=== PATIENT | female | born 1980 | race Hispanic/Latino ===

== ENCOUNTER → 2024-03-22 10:06 | Outpatient (REF) | payer OTHER, SELFPAY | LOC: RAD 10:06 | PROVIDERS: ATTENDING PHYSICIAN Physician Assistant Medical | DX: R07.9 Chest pain, unspecified (principal) | CPT/HCPCS: 71046 ==

== ENCOUNTER → 2024-03-29 10:49 | Outpatient (REF) | payer OTHER, SELFPAY ==
[2024-03-29 11:26] LABS: % Eosinophils 1.1 % (0-6); % Immature Granulocytes 0.2 % (0-0.5); % Lymphocytes 24.4 % (20.5-51.1); % Monocytes 7.2 % (1.7-9.3); % Neutrophils 66.1 % (42.2-75.2); Absolute Basophils 0.1 10^3/uL (0-0.2); Absolute Eosinophils 0.1 10^3/uL (0-0.7); Absolute Lymphocytes 1.5 10^3/uL (1.2-3.4); Absolute Monocytes 0.4 10^3/uL (0.1-0.6); Absolute Neutrophils 4.1 10^3/uL (1.4-6.5); Hematocrit 40.8 % (37.0-47.0); Hemoglobin 13.3 g/dL (12.0-16.0); Mean Corp Hgb Conc. 32.6 g/dL (33.0-37.0); Mean Corpuscular Hgb 28.4 pg (27.0-31.0); Mean Platelet Volume 8.3 fL (7.4-10.4); Nucleated Red Blood Cells % 0 %; Platelet Count 410 10^3/uL (130-400); Red Blood Cell Count 4.69 10^6/uL (4.20-5.40); Red Cell Dist. Width 12.6 % (11.5-14.5); White Blood Cell Count 6.1 10^3/uL (4.8-10.8)
[2024-03-29 12:50] LABS: ALT (SGPT) 18 U/L (0-35); AST (SGOT) 18 U/L (14-36); Albumin 4.4 g/dl (3.5-5.0); Alkaline Phosphatase 47 U/L (38-126); Blood Urea Nitrogen 11 mg/dl (7-17); Calcium 9.8 mg/dl (8.4-10.2); Carbon Dioxide 28 mmol/L (22-30); Chloride 99 mmol/L (98-107); Glucose 102 mg/dl (70-99); Potassium 4.6 mmol/L (3.5-5.1); Sodium 138 mmol/L (135-145); Total Bilirubin 0.7 mg/dl (0.2-1.3); Total Protein 7.1 g/dl (6.3-8.2); eGFR > 60.00
[2024-03-29 12:52] LABS: C-Reactive Protein < 5.00 mg/L (0.0-10.00)
[2024-03-29 13:09] LABS: Vitamin D, 25-OH*** 64.1 ng/mL (30-80)
[2024-03-29 13:54] LABS: Urine Albumin Negative (Neg - Trace); Urine Bilirubin Negative (Negative); Urine Character Clear (Clear); Urine Color Yellow; Urine Glucose Negative (Negative); Urine Ketone Negative (Negative); Urine Leukocyte Negative (Negative); Urine Nitrite Negative (Negative); Urine Occult Blood Negative (Negative); Urine Specific Gravity 1.005 (<1.030); Urine Urobilinogen Negative (Neg - 1+); Urine pH 6.5 (5.0-9.0)
[2024-03-29 14:16] LABS: Urine Bacteria Few (Negative); Urine Red Blood Cell 0-2 /HPF (0-2); Urine Squamous Cell >30 /LPF (Few)
[2024-03-29 14:40] LABS: Protein/creatinine Ratio 0.9; Urine Protein 11 mg/dl
[2024-03-30 23:07] LABS: Complement C3 99 mg/dl (88-165); IgG 1184 mg/dl (700-1600); IgM 89 mg/dl (40-230)
[2024-03-30 23:32] LABS: ANA, IgG Reflex to HEp-2 Detected (None Detected)
[2024-03-31 12:01] LABS: ANA, HEp-2, IgG Detected (<1:80)
[2024-03-31 12:47] LABS: Jo-1 Antibodies 1 AU/mL (0-40); SSA 52 (Ro)(ENA) Ab, IgG 1 AU/mL (0-40); SSA 60 (Ro)(ENA) Ab, IgG 0 AU/mL (0-40); SSB (La)(ENA) Ab, IgG 1 AU/mL (0-40); Scleroderma Antibody (Scl-70) 1 AU/mL (0-40)
[2024-03-31 13:53] LABS: Smith/RNP (ENA), IgG 5 Units (0-19)
[2024-03-31 15:46] LABS: Lyme Antibody Screen, EIA Negative (Negative)
[2024-04-01 06:39] LABS: ANA Pattern Homogeneous
== END ==
LOC: REG 10:49
PROVIDERS: ATTENDING PHYSICIAN Internal Medicine Rheumatology; FAMILY PHYSICIAN Physician Assistant Medical
DX: A69.20 Lyme disease, unspecified (principal); E55.9 Vitamin D deficiency, unspecified; I73.00 Raynaud's syndrome without gangrene; R76.8 Other specified abnormal immunological findings in serum; Z79.899 Other long term (current) drug therapy
CPT/HCPCS: 36415; 80053; 81003; 81015; 82306; 82570; 82784; 84156; 85025; 86038; 86039; 86140; 86160; 86235; 86618

== ENCOUNTER 2025-03-02 06:17 | Day surgery (SDC) | payer OTHER, SELFPAY | END 2025-03-02 11:37 | disposition home or self-care (01) | LOC: GI 06:17 | PROVIDERS: ATTENDING PHYSICIAN Internal Medicine | DX: Z12.11 Encounter for screening for malignant neoplasm of colon (principal); D12.5 Benign neoplasm of sigmoid colon; K62.1 Rectal polyp; Z86.0100 Personal history of colon polyps, unspecified | CPT/HCPCS: 45385; 45380; 88305 ==

== ENCOUNTER 2025-04-05 04:06 | Emergency (ER) | payer OTHER, SELFPAY ==
[2025-04-05 04:09] VITALS: BP 131/97
[2025-04-05 04:34] LABS: Hematocrit 41.8 % (37.0-47.0); Hemoglobin 13.4 g/dL (12.0-16.0); Mean Corp Hgb Conc. 32.1 g/dL (33.0-37.0); Mean Corpuscular Volume 86.0 fL (81.0-99.0); Nucleated Red Blood Cells % 0 %; Platelet Count 361 10^3/uL (130-400); Red Cell Dist. Width 12.6 % (11.5-14.5)
[2025-04-05 04:49] LABS: ALT (SGPT) 17 U/L (0-35); AST (SGOT) 18 U/L (14-36); Albumin 4.6 g/dl (3.5-5.0); Alkaline Phosphatase 45 U/L (38-126); Blood Urea Nitrogen 13 mg/dl (7-17); Calcium 9.5 mg/dl (8.4-10.2); Carbon Dioxide 28 mmol/L (22-30); Chloride 102 mmol/L (98-107); Glucose 108 mg/dl (70-99); Potassium 4.1 mmol/L (3.5-5.1); Sodium 138 mmol/L (135-145); Total Protein 7.4 g/dl (6.3-8.2); eGFR > 60.00
[2025-04-05 05:00] VITALS: BP 139/85
[2025-04-05] MEDS: NSS 1000 IV (05:01)
--- NOTE | 2025-04-05 05:08 | ED.GENMED ---
History of Present Illness
<Quiana Doran MD, Resident - Last Filed: 04/05/25 06:13>
General
Chief Complaint: Abdominal Symptoms
Source: patient
Exam Limitations: none
Time Seen by Provider: 04/05/25 04:44
History of Present Illness
History of Present Illness:
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
Presented with nausea and diarrhea for the last 7 hours
Last night, around 7 PM she went out for dinner with her friend. She had some questions let and did not feel anything odd about it.
She came home and then around 10 PM she started to feel nauseous, had crampy abdominal pain and had a soft stool, that helped with the pain, later she developed diarrhea and had 3 episodes. Last episode was around 4 AM, it was blackish in color and
had an odd smell to it.
In between the bowel movements, she only had this few sips of water. She developed dizziness, and started to feel her heart racing and then she came to the ER.
Denies any fever, chills, vomiting, blood in stools, mucus in stools, and does not know if her friend had any symptoms.
Past History
<Quiana Doran MD, Resident - Last Filed: 04/05/25 06:13>
Past History
ED Past Medical History: None
ED Past Surgical History: Bowel resection (childhood - torsion)
Social History
Tobacco: Non-smoker
Alcohol: None
Review of Systems
<Quiana Doran MD, Resident - Last Filed: 04/05/25 06:13>
Review of Systems
Allergies reviewed?: Yes
EENT: Reports no symptoms
Respiratory: Reports no symptoms
Cardiac: Reports palpitations
ABD/GI: Reports abdominal pain, nausea and diarrhea
: Reports no symptoms
Musculoskeletal: Reports no symptoms
Skin: Reports no symptoms
Neurological: Reports no symptoms
Endocrine: Reports no symptoms
Hematologic/Lymphatic: Reports no symptoms
Psychiatric: Reports no symptoms
Phy Exam
<Quiana Doran MD, Resident - Last Filed: 04/05/25 06:13>
General Physical Exam
General Presentation: well appearing and no apparent distress
General Skin: warm and dry
General Habitus: normal
General Mental: alert
General Hydration: appears well hydrated
Cardiovascular Exam
Cardiovascular Exam: regular rate/rhythm, no murmur and tachycardia
Pulmonary Exam
Pulmonary Exam: lungs clear, no respiratory distress, no rales, no crackles and no rhonchi
Gastrointestinal Exam
Gastrointestinal Exam: soft and tender (epigastric region)
Neurological Exam
Neurological Exam: alert and oriented x3
Musculoskeletal Exam
Musculoskeletal Exam: full ROM
Skin Exam
Skin Exam: normal color, warm/dry and no rash
Psychiatric Exam
Psychiatric Exam: normal mood/affect
Course
<Quiana Doran MD, Resident - Last Filed: 04/05/25 06:13>
Orders/Labs/Results
Orders:
Orders
04/05/25 04:15
EKG [Electrocardiogram (*1)] Urgent
Reason for Study: Abdominal Pain
EKG- Treatment ONCE
04/05/25 04:16
Complete Blood Count/With Diff Urgent
Comprehensive Metabolic Panel Urgent
Lipase Urgent
Comment: ADDED
04/05/25 04:47
0.9% Sodium Chloride 1000 ml [Nss] 1,000 ml IV BOLUS
04/05/25 05:21
Diphenoxylate / Atropine [Lomotil] 1 tablet PO NOW STA
Ondansetron Injectable [Zofran] 4 mg IV NOW STA
04/05/25 05:43
Add On- LAB Urgent
Tests Added?: lipase
Abnormal Lab Results
04/05/25
04:16
MCHC 32.1 L g/dL
(33.0-37.0)
Glucose 108 H mg/dl
(70-99)
04/05/25 04:16
04/05/25 04:16
Vital Signs
Initial and Last Documented VS:
Initial Vital Signs
Temp Pulse Resp BP Pulse Ox
98.4 F 116 18 131/97 99
04/05/25 04:09 04/05/25 04:09 04/05/25 04:09 04/05/25 04:09 04/05/25 04:09
Last Documented Vital Signs
Temp Pulse Resp BP Pulse Ox
98.4 F 97 17 113/69 99
04/05/25 04:09 04/05/25 06:30 04/05/25 06:30 04/05/25 06:00 04/05/25 05:13
<Miya Morgan, DO - Last Filed: 04/05/25 06:59>
Orders/Labs/Results
Orders:
Orders
04/05/25 04:15
EKG [Electrocardiogram (*1)] Urgent
Reason for Study: Abdominal Pain
EKG- Treatment ONCE
04/05/25 04:16
Complete Blood Count/With Diff Urgent
Comprehensive Metabolic Panel Urgent
Lipase Urgent
Comment: ADDED
04/05/25 04:47
0.9% Sodium Chloride 1000 ml [Nss] 1,000 ml IV BOLUS
04/05/25 05:21
Diphenoxylate / Atropine [Lomotil] 1 tablet PO NOW STA
Ondansetron Injectable [Zofran] 4 mg IV NOW STA
04/05/25 05:43
Add On- LAB Urgent
Tests Added?: lipase
Abnormal Lab Results
04/05/25
04:16
MCHC 32.1 L g/dL
(33.0-37.0)
Glucose 108 H mg/dl
(70-99)
04/05/25 04:16
04/05/25 04:16
Vital Signs
Initial and Last Documented VS:
Initial Vital Signs
Temp Pulse Resp BP Pulse Ox
98.4 F 116 18 131/97 99
04/05/25 04:09 04/05/25 04:09 04/05/25 04:09 04/05/25 04:09 04/05/25 04:09
Last Documented Vital Signs
Temp Pulse Resp BP Pulse Ox
98.4 F 97 17 113/69 99
04/05/25 04:09 04/05/25 06:30 04/05/25 06:30 04/05/25 06:00 04/05/25 05:13
<Quiana Doran MD, Resident - Last Filed: 04/05/25 06:13>
MDM/Problems Addressed
Differential Diagnosis Includes:
Viral gastroenteritis
MDM/Problems Addressed:
Patient presented with nausea and 4 episodes of diarrhea 3 hours after he dining out with her friend. She does not know about symptoms of her friend. She is having loose stools, feels very weak, lightheaded and feels her heart racing.
Blood work done CBC and CMP looks good
Rehydrate the patient with 1 L of normal saline and observe for any further diarrheal episodes.
Her heart rate is improving and she is feeling better.
Advised to use Pedialyte and bland diet for the next few days.
<Quiana Doran MD, Resident - Last Filed: 04/05/25 06:13>
*Pulse Oximetry
SaO2: 99
Oxygen Mode of Delivery: Room air
Patient hypoxic: no
*Critical Care Note
Total Time (30-74mins, 75-104mins- exclusive of procedures): Not Applicable
ED Attending Note
<Quiana Doran MD, Resident - Last Filed: 04/05/25 06:13>
-
Portions of this chart may have been created with voice recognition software.� Occasional wrong word or��sound alike� substitutions may have occurred due to the inherent limitations of voice recognition software.
<Miya Morgan DO - Last Filed: 04/05/25 06:59>
ED Attending Note
Patient seen and examined by attending physician: Yes
I performed a history and physical exam of patient and discussed management with resident, I reviewed resident's note and agree with documented findings and plan of care.: Yes
ED Attending Note:
44-year-old woman with history of seasonal allergies presents with acute nausea, abdominal pain, diarrhea that began around 10 PM last night. She ate fish while she was at a restaurant with friends last night.
She has passed 4 loose stools, the last was quite watery and black. She has been nauseated but has not vomited. She complains of crampy epigastric abdominal discomfort. She has not had a fever nor chills but with onset of diarrhea developed
palpitations feeling that her heart was beating rapidly.
She arrived via EMS. Prehospital EKG shows sinus tachycardia at 130. Blood pressure 130-140 systolic prehospital.
She denies recent antibiotic use nor recent travel.
No known close contacts with similar symptoms.
She denies risk of . Last menstrual period 1 week ago, normal and on time.
Her only daily medication is Yajaira daily.
44-year-old woman appears her stated age, bright and alert, pleasant, appears in no acute distress. Afebrile.
HEENT: Oral mucosa is moist.
Heart is regular rhythm, mildly tachycardic at 108. No murmur no rub.
Lungs are clear to auscultation. No respiratory distress.
Abdomen is soft, nondistended, minimal tenderness epigastric region with deep palpation only. No rebound or guarding. Normoactive bowel sounds.
Skin is warm and dry, normal color. Good turgor.
Concern for acute gastroenteritis either viral versus foodborne. Small bowel obstruction, cholecystitis, pancreatitis are also considerations.
Overall well in appearance.
Mild sinus tachycardia but otherwise hemodynamically stable.
Labs thus far are all unremarkable. Normal CBC. Unremarkable chemistries. Due to upper abdominal discomfort we will add lipase.
IV fluids infusing. Will give a dose of Zofran for nausea and a dose of Lomotil for diarrhea. Thus far has had no diarrhea since arrival to the ED.
06:50
Patient feeling improved after IV fluids.
Monitor shows normal sinus rhythm in the 90s. She remains afebrile. Normotensive.
Abdominal pain has resolved.
Lipase is normal.
Tolerating oral fluids.
Will discharge to home with prescription for Zofran for as needed nausea, Lomotil for as needed diarrhea.
Recommend she limit her diet to clear liquids today, slowly advance to soft bland foods as tolerated. Brat diet discussed as well.
Follow-up with PCP as needed.
Return precautions discussed.
Discharge Plan
Departure
Patient Disposition: Home (Routine Discharge)
Date of Disposition: 04/05/25
Time of Disposition: 06:57
Patient with high blood pressure during this ER visit?: No
Condition: Good
Discharge Problem:
Viral gastroenteritis
Instructions: Viral gastroenteritis in adults
Prescriptions:
New
diphenoxylate-atropine [Lomotil] 2.5-0.025 mg tablet
1 tab PO QID PRN (Reason: diarrhea) Qty: 10 0RF
ondansetron 4 mg tablet,disintegrating
4 mg PO QID PRN (Reason: nausea and vomiting) Qty: 20 0RF
No Action
azelastine 1 SPRAY aerosol,spray
1 spray intranasal BID
ondansetron 4 MG tablet,disintegrating
4 mg PO TIDPRN PRN (Reason: nausea/vomiting) Qty: 12 0RF
diazepam [Valium] 2 mg tablet
2 mg PO TID PRN (Reason: muscle spasm) Qty: 15 0RF
Referrals:
UNKNOWN,NO INTERVIEW [Family Provider]
Activity Restrictions/Additional Instructions:
BLAND DIET FOR NEXT FEW DAYS
PEDIALYTE AND INCREASED WATER INTAKE
IF SYMPTOMS WORSENS,BLOOD IN STOOLS OR FEVER PLEASE CALL PCP OR VISIT ER
Interventions
Interventions:
*Risk Screen - Suicide Last Done: 04/05/25 04:09
*General Assessment Last Done: 04/05/25 04:09
*Neglect/Abuse Screening Last Done: 04/05/25 04:09
*ED- Fall Risk Assessment Last Done: 04/05/25 04:09
*ED Influenza Vaccine History Last Done: 04/05/25 04:09
HM-Ozbneb-Ekmehjlqvd Assessment Last Done: 04/05/25 04:43
Discharge Date and Time
Print Language: PUERTO RICAN
[2025-04-05] MEDS: ZOFRAN 4 MG IV (05:44)
[2025-04-05] MEDS: LOMOTIL 1 TABLET PO (05:44)
[2025-04-05 06:00] VITALS: BP 113/69
[2025-04-05 06:26] LABS: Lipase 144 U/L (23-300)
[2025-04-05 06:54] VITALS: BP 123/87
[2025-04-05 06:55] VITALS: BP 123/87
== END 2025-04-05 07:25 | disposition home or self-care (01) ==
LOC: EMR 04:06
PROVIDERS: EMERGENCY PHYSICIAN Emergency Medicine
DX: A08.4 Viral intestinal infection, unspecified (principal)
CPT/HCPCS: 96374; 99284; 80053; 83690; 85025; 93005